=== PATIENT | female | born 1980 | race Caucasian/White ===

== ENCOUNTER → 2019-08-27 11:21 | Outpatient (BNVA) | payer OTHER, SELFPAY | PROVIDERS: Family Provider Electrodiagnostic Medicine; PCP Electrodiagnostic Medicine; Visit Provider Urology | DX: N30.20 Other chronic cystitis without hematuria (principal); B37.3 Candidiasis of vulva and vagina | CPT/HCPCS: 81001; 87086 ==

== ENCOUNTER → 2020-06-18 18:11 | Outpatient (BNVA) | payer OTHER, SELFPAY | PROVIDERS: Family Provider Electrodiagnostic Medicine; PCP Electrodiagnostic Medicine; Visit Provider Electrodiagnostic Medicine | DX: Z11.59 Encounter for screening for other viral diseases (principal) | CPT/HCPCS: 87635 ==

== ENCOUNTER 2020-08-12 13:41 | Outpatient (CLI) | payer OTHER, SELFPAY ==
--- NOTE | 2020-08-12 13:15 | XR_ITS ---
WS: [id number] Exam: XR KUB [id number] Date/Time of Exam: 08/12/2020 1:51 PM Reason For Exam: Stone No bowel obstruction or free air. No abnormal calcifications identified in the region of the renal si lhouettes. Visualized organ margins are intact. Moderate amount of stool in the large bowel. Rounded nonspecific right pelvic calcifications are noted probably phleboliths. XR/XR KUB [id number] IMPRESSION: 1. No acute abdominal process. 2. No abnormal calcifications identified in the region of the kidneys.
== END 2020-08-12 13:42 | disposition home or self-care (01) ==
LOC: RAD 13:48
PROVIDERS: PCP Electrodiagnostic Medicine; Visit Provider Urology
DX: N20.0 Calculus of kidney (principal)
CPT/HCPCS: 74018; 81003

== ENCOUNTER → 2020-09-05 08:32 | Outpatient (BNVA) | payer OTHER, SELFPAY | PROVIDERS: PCP Electrodiagnostic Medicine; Visit Provider Nurse Practitioner Family | DX: N30.20 Other chronic cystitis without hematuria (principal) | CPT/HCPCS: 81003 ==

== ENCOUNTER → 2020-09-18 08:15 | Outpatient (BNVA) | payer OTHER, SELFPAY | PROVIDERS: PCP Electrodiagnostic Medicine; Visit Provider Urology | DX: N30.20 Other chronic cystitis without hematuria (principal); N20.0 Calculus of kidney; R35.8 Other polyuria | CPT/HCPCS: 81003 ==

== ENCOUNTER → 2020-10-29 14:31 | Outpatient (BNVA) | payer OTHER, SELFPAY | PROVIDERS: PCP Electrodiagnostic Medicine; Visit Provider Obstetrics & Gynecology | DX: Z12.4 Encounter for screening for malignant neoplasm of cervix (principal) | CPT/HCPCS: 88175 ==

== ENCOUNTER → 2020-11-11 16:06 | Outpatient (BNVA) | payer OTHER, SELFPAY | PROVIDERS: PCP Electrodiagnostic Medicine; Visit Provider Obstetrics & Gynecology | DX: R87.611 Atypical squamous cells cannot exclude high grade squamous intraepithelial lesion on cytologic smear of cervix (ASC-H) (principal) | CPT/HCPCS: 88305 ==

== ENCOUNTER → 2020-11-28 10:14 | Outpatient (BNVA) | payer OTHER, SELFPAY | PROVIDERS: PCP Electrodiagnostic Medicine; Visit Provider Obstetrics & Gynecology | DX: D06.9 Carcinoma in situ of cervix, unspecified (principal); Z20.822 Contact with and (suspected) exposure to COVID-19 | CPT/HCPCS: 87635 ==

== ENCOUNTER 2020-12-04 07:08 | Day surgery (SDC) | payer OTHER, SELFPAY ==
[2020-12-03 15:22] VITALS: BMI 27.4
[2020-12-04] VITALS (9 sets, daily range): BP systolic 106–121; BP diastolic 53–90; PULSE 83–114; RESP 16–20; TEMP 36.4–36.8; O2SAT 94–99
--- NOTE | 2020-12-04 07:19 | ANES.PREANE2 ---
Pre-Anesthetic Assessment Pre-Anesthetic Assessment: Height/Weight: Height 1.57 m Weight 68.039 kg Preop Diagnosis: SLOANE-2/3 Proposed Procedure: Operation Date: 12/04/20 08:45 Proposed Procedures p Cold Knife Cone Biopsy 70238 R87.621(Not Applicable) - Juan Miguel Hutson MD Was Beta Helga taken within 24 hours: N/A Was Clonidine taken within 24 hours: N/A Social: Social History: No alcohol and No tobacco Exam: Pre-Anes Outpt Exam: alert, oriented x 3, clear to auscultation bilaterally and regular rate & rhythm Airway: Submandibular: WNL Cervical ROM: WNL MP: 2 History/ROS: No significant complaints Pulmonary: Pulmonary: None reported CV/HEM: CV/HEM: None reported : : UTI Comments: Kidney stones, chronic cystitis Hepatic: Hepatic: None reported GI: Comments: Gastritis without significant reflux Neuropsych: Neuropsych: AVITIA (Migraine ) Anesthetic Plan: ASA status: 2 Anesthesia: General PFSH Anesthesia PFSH: Medical History Gastritis Reports having a history of gastritis/stomach ulcer and she takes daily omeprazole to help with the symptoms. Migraine Reports having a history of migraines most when she was in her 20s. They are just occasional now and Excedrin Migraine takes care of it. Denies any auras now. No pertinent past medical history Denies diabetes, asthma, hypertension, seizures, DVT/PE PCP: Dr. Burgess Surgical History H/O oral surgery [place] teeth removal. H/O tubal ligation tubal ligation via infraumbilical incision on 08/2008 Hx of appendectomy Open appendectomy via right lower quadrant incision in April 2009. Family History Mother Diabetes Father Hypertension Grandmother Diabetes maternal Stroke maternal Brother Hypertension Denies family history of Colon cancer Ovarian cancer Heart disease Hyperlipidemia Breast cancer Uterine cancer Thyroid condition Social History Smoking and tobacco status: never smoked Alcohol intake: never Marital status: Current occupational status: employed History of recent travel: No Current gender identity: Female Female Reproductive History: Date of last menstrual period: 11/27/20 Data Anesthesia Cardiac Studies: No Data to Display
[2020-12-04] MEDS: sodium chloride 0.9% 1,000 ML 30 ML IV (07:42)
[2020-12-04 07:54] LABS: OR HCG Qualitative Urine Negative (Negative)
[2020-12-04 08:26] LABS: Basophils % 0.6 %; Eosinophils % 0.9 %; Hematocrit 41.5 % (37.0-47.0); Hemoglobin 13.7 g/dL (11.5-15.3); Lymphocytes # 1.1 10^3/uL (0.8-4.8); Mean Corpuscular Hemoglobin 27.3 pg (28.0-34.0); Mean Corpuscular Volume 82.8 fL (81-99); Mean Platelet Volume 10.6 fL (7.4-10.4); Monocytes # 0.2 10^3/uL (0.2-0.9); Monocytes % 4.3 %; Neutrophils # 3.31 10^3/uL (1.8-7.7); Nucleated Red Blood Cells % 0 %; Platelet Count 292 10^3/cmm (130-400); Red Blood Count 5.01 10^6/uL (4.1-5.3); White Blood Count 4.7 10^3/uL (4.0-10.0)
--- NOTE | 2020-12-04 09:27 | W.PM.OPSUD ---
Surgery/Procedure H&P Update DATE OF PROCEDURE: December 04, 2020 DATE H&P PERFORMED: 11/24/20 H&P UPDATE INFORMATION: I have reviewed H&P completed within last 30 days, I have examined patient prior to procedure, No changes to prior documentation and H&P is in [facility] [place] on date indicated PREOP DIAGNOSIS: SLOANE-2/3 PLANNED PROCEDURE: Operation Date: 12/04/20 08:45 Proposed Procedures p Cold Knife Cone Biopsy [id number] R87.621(Not Applicable) - Juan Miguel Hutson MD
--- NOTE | 2020-12-04 10:37 | P.OP_ITS ---
Operative Report Date of procedure: December 04, 2020 OPERATIVE REPORT Date of surgery: 12/04/2020 Date of dictation: 12/04/2020 Preoperative diagnosis: SLOANE-3 and SLOANE-2 Postoperative diagnosis/findings: Same, dense acetowhite lesions noted circumferentially around the cervix, grade 2 uterine prolapse, grade 1 cystocele, minimal rectocele, exam under anesthesia 8week, no adnexal masses size anteverted uterus Procedure done: Cold knife cone biopsy Specimens removed/disposition of specimens: Cervical cone, biopsy at 3:00 post cone excision, post LEEP ECC Surgeon: Dr. Juan Miguel Brown rehab care assistant: Belen Fuentes Anesthesia: Laryngeal mask anesthesia Estimated blood loss: 50 ml Intravenous fluids: 500 mL of LR Urine output: 50 mL of urine at the end of procedure Medications: As per anesthesia records Complications: None, patient was taken to the recovery room in a stable condition. PROCEDURE: After informed consent was obtained patient was taken to the operating room where she was placed under laryngeal mask anesthesia without any difficulty. She was placed in dorsal lithotomy position taking care to avoid any pressure points. Examined anesthesia revealed an 8-week size anteverted uterus with grade 2 uterine prolapse, grade 1 cystocele and minimal rectocele. Weighted speculum and anterior wall retractor was used to visualize the cervix and tenaculum was placed on the cervix as well. Acetic acid and Lugol's were placed over the cervix and acetowhite area was identified all around the squamocolumnar junction circumferentially. No additional changes noted with Lugol's iodine placement. -Using a scalpel cold knife cone was performed taking care to include all the abnormal tissue noted on the ectocervix and angling inwards in the shape of a cone. - Stay sutures were placed bilaterally to help with bleeding at 3:00 and 9:00. - It was tagged at 12:00. Once this was done it was noted that the left lateral aspect of the cervix had additional tissue and a biopsy was taken--labeled biopsy at 3:00. Once this was done endocervical curettage was performed both with a curet and Cytobrush and the specimens were sent to pathology. Using the rollerball cautery hemostasis was obtained over the cervix. Pursestring sutures were placed from about 3:00 to 9:00 for additional hemostasis. Good hemostasis was achieved. Monsel's was used as well. Good hemostasis noted. All instruments were removed and patient tolerated the procedure well FOLLOW UP: Follow-up in 2 weeks and 6 weeks with surgeon MEDICATION ON DISCHARGE: Colace 100 mg by mouth every 12 hours when necessary constipation, 30 tablets, no refills Ibuprofen 800 mg by mouth every 8 hours when necessary pain, 60 tablets, no refills. [place] 5/325 mg 1 tablet by mouth every 6 hours when necessary pain,15 tablets, no refills Continue other home medication DISPOSITION: Home in a stable condition This documentation was created by [employer] clubhouse attendant software (known for inherent clubhouse attendant error). Every effort was made to assure accuracy of clubhouse attendant. Any obvious errors or omissions should be clarified with the author of the document. Pre-op Diagnosis: SLOANE-2/3
--- NOTE | 2020-12-04 10:38 | PC.NURSE ---
2 bottles of ferric subsulate used on sterile field. exp 01/06 lot#[id number] 1 bottle of lugol's used on sterile field exp 02/04 lot#[id number]
--- NOTE | 2020-12-04 10:43 | SUR.PHASEI ---
1040- ORAL AIRWAY REMOVED, SIMPLE MASK IN PLACE AT 6LPM SAT 97%
--- NOTE | 2020-12-04 12:31 | ANE.PACU2 ---
Inpatient post-anesthesia follow up: Airway intact: Yes Vital signs: Temperature 97.5 F Pulse Rate 105 Respiratory Rate 18 Blood Pressure 108/69 Pulse Oximetry 97 Oxygen Delivery Me thod Room Air Oxygen Flow Rate 6 Fraction of Inspir ed Oxygen Hydration adequate: Yes Nausea and vomiting: No Pain level: 3 Mental status: Baseline
--- NOTE | 2020-12-04 13:06 | SUR.PHASEII ---
1245: patient has not had any bleeding since arrival to phase 2 at 1058
== END 2020-12-04 12:55 | disposition home or self-care (01) ==
PROVIDERS: PCP Electrodiagnostic Medicine; Visit Provider Obstetrics & Gynecology
PROC: 0UB97ZZ Excision of Uterus, Via Natural or Artificial Opening (ICD-10-PCS; CPT 57520; principal; 2020-12-04 08:45)
DX: D06.9 Carcinoma in situ of cervix, unspecified (principal)
CPT/HCPCS: 57520; 36415; 81025; 84703; 85025; 86850; 86900; 88307; J1100; J2250; J2405; J2704; J3010; J3490; J7030

== ENCOUNTER → 2020-12-23 08:45 | Outpatient (BNVA) | payer OTHER, SELFPAY | PROVIDERS: PCP Electrodiagnostic Medicine; Visit Provider Nurse Practitioner Family | DX: N30.20 Other chronic cystitis without hematuria (principal) | CPT/HCPCS: 81003 ==

== ENCOUNTER → 2021-11-11 11:30 | Outpatient (BNVA) | payer OTHER, SELFPAY | PROVIDERS: PCP Electrodiagnostic Medicine; Visit Provider Obstetrics & Gynecology | DX: D06.9 Carcinoma in situ of cervix, unspecified (principal); N93.9 Abnormal uterine and vaginal bleeding, unspecified | CPT/HCPCS: 84146; 84443; 85027; 87624 ==

== ENCOUNTER → 2021-12-11 08:18 | Outpatient (BNVA) | payer OTHER, SELFPAY | PROVIDERS: PCP Electrodiagnostic Medicine; Visit Provider Obstetrics & Gynecology | DX: N93.9 Abnormal uterine and vaginal bleeding, unspecified (principal); N83.202 Unspecified ovarian cyst, left side | CPT/HCPCS: 76830 ==

== ENCOUNTER 2022-06-08 10:55 | Day surgery (SDC) | payer OTHER, SELFPAY ==
[2022-06-07 10:18] VITALS: BMI 28.7
[2022-06-08] VITALS (18 sets, daily range): BP systolic 109–140; BP diastolic 67–101; PULSE 82–134; RESP 12–20; TEMP 36.1–36.9; O2SAT 95–100
[2022-06-08 11:47] LABS: OR HCG Qualitative Urine Negative (Negative)
[2022-06-08] MEDS: sodium chloride 0.9% 1,000 ML 30 ML IV (11:52)
[2022-06-08] MEDS: scopolamine 1.5 Patch 1 PATCH TRANSDERMA (11:52)
--- NOTE | 2022-06-08 11:58 | ANES.PREANE2 ---
Pre-Anesthetic Assessment Height/Weight: Height 1.57 m Weight 71.214 kg Temp Pulse Resp BP Pulse Ox O2 Del Method 98.5 F 84 16 139/101 99 06/08/22 11:20 06/08/22 11:20 06/08/22 11:20 06/08/22 11:20 06/08/22 11:20 06/08/22 11:25 Preop Diagnosis: AUB Operation Date: 06/08/22 12:20 Proposed Procedures p Hysteroscopy w/ Myosure(Not Applicable) - Lisa Camacho MD s Dilation And Curettage (D&C)(Not Applicable) - Lisa Camacho MD Familial anesthetic complications: none Was Beta Helga taken within 24 hours: N/A Was Clonidine taken within 24 hours: N/A Last intake: Intake Last Liquid Date 06/08/22 Last Liquid Time 04:00 Last Solid Date 06/07/22 Last Solid Time 21:00 Social No alcohol Exam alert, oriented x 3, clear to auscultation bilaterally and regular rate & rhythm Airway Submandibular: within normal limits Cervical ROM: within normal limits Mallampati: Class II Dentition: full GI Gastroesophageal Reflux Disease Neuropsych Headache Anesthetic Plan ASA status: 2 Anesthesia: General Medications/Allergies Home Medications Medication Instructions Recorded Confirmed Last Taken Type acetaminophen 500 mg capsule 500 mg PO Q6H PRN Pain 08/27/19 06/07/22 Unknown History diphenhydramine HCl 25 mg capsule 25 mg PO TID PRN Allergy Symptoms 08/27/19 06/07/22 06/06/22 History (Benadryl) vitamin B complex (B 1 tab PO DAILY 08/27/19 06/08/22 06/07/22 History Complex-Vitamin B12 tablet) valacyclovir 500 mg tablet 500 mg PO DAILY PRN Cold Sores 08/12/20 06/08/22 05/24/22 History (Valtrex) omeprazole 10 mg capsule,delayed 10 mg PO DAILY PRN Acid Reflux 11/24/20 06/08/22 06/01/22 History release ibuprofen 800 mg tablet 800 mg PO Q8H PRN pain 12/17/20 06/08/22 06/02/22 History cholecalciferol (vitamin D3) PO 01/21/21 06/03/22 06/06/22 History cetirizine 10 mg capsule (Zyrtec) 10 mg PO DAILY 11/11/21 06/07/22 06/07/22 History melatonin 3 mg capsule 3 mg PO DAILY PRN Sleep 11/11/21 06/08/22 06/06/22 History zinc acetate PO PRN supplement 12/23/21 06/03/22 Unknown History norethindrone (contraceptive) 0.35 0.35 mg PO DAILY #84 tabs 04/27/22 06/07/22 06/07/22 Rx mg tablet (Ortho Micronor) Mucinex PRN Congestion 06/08/22 06/06/22 History Allergies Allergy/AdvReac Type Severity Reaction Status Date / Time No Known Allergies Allergy Verified 06/03/22 07:59 Current Medications Generic Name Dose Route Start Last Admin Trade Name Freq PRN Reason Stop Dose Admin Sodium Chloride 1,000 mls @ 30 mls/hr 06/08/22 11:15 06/08/22 11:52 Sodium Chloride 0.9% IV 06/09/22 11:14 30 mls/hr .Q24H JUAN R Administration PFSH Anesthesia Medical History Gastritis Reports having a history of gastritis/stomach ulcer and she takes daily omeprazole to help with the symptoms. Migraine with optical [place]. Reports having a history of migraines most when she was in her 20s. States that they are worse during her menstrual cycle. Tylenol Sinus helps. Does not have a neurologist now but did see 1 5 years ago and was under treatment for 1 year with medication with no improvement of symptoms. No pertinent past medical history Denies diabetes, asthma, hypertension, seizures, DVT/PE PCP: Dr. Burgess Surgical History H/O oral surgery [place] teeth removal. H/O tubal ligation tubal ligation via infraumbilical incision on 08/2008 Hx of appendectomy Open appendectomy via right lower quadrant incision in April 2009. S/P conization of cervix 12/04/2020--cold knife cone biopsy by Dr. Brown at [facility] for SLOANE-3. Pathology showed focal SLOANE-2 with no endocervical glandular involvement. Ectocervical and endocervical margins are negative. Post LEEP ECC was benign Family History Mother Diabetes Father Hypertension Grandmother Diabetes maternal Stroke maternal Brother Hypertension Mother Breast cancer Family/Other Breast cancer maternal aunt, diagnosed at age 70 Denies family history of Colon cancer Ovarian cancer Heart disease Hyperlipidemia Uterine cancer Thyroid condition Female Reproductive History Date of last menstrual period: 05/13/22 Data Anesthesia Cardiac Studies: No Data to Display
[2022-06-08] MEDS: ceFAZolin 2,000 MG in sodium chloride 0.9% (plus) 50 ML 100 MG IV (12:55)
--- NOTE | 2022-06-08 12:57 | W.PM.OPSUD ---
Surgery/Procedure H&P Update DATE OF PROCEDURE: June 08, 2022 DATE H&P PERFORMED: 06/03/22 H&P UPDATE INFORMATION: I have reviewed H&P completed within last 30 days, I have examined patient prior to procedure and No changes to prior documentation PREOP DIAGNOSIS: AUB PLANNED PROCEDURE: Operation Date: 06/08/22 12:20 Proposed Procedures p Hysteroscopy w/ Myosure(Not Applicable) - Lisa Camacho MD s Dilation And Curettage (D&C)(Not Applicable) - Lisa Camacho MD Related Problem List Diagnoses (1) Abnormal uterine bleeding (AUB):
--- NOTE | 2022-06-08 13:34 | P.OP_ITS ---
Operative Report Date of procedure: June 08, 2022 Pre-op diagnosis: Preop Diagnosis AUB Post-op diagnosis: same Post-op findings: 10 week sized uterus, excessive tissue anteriorly and around 5:00. Procedure done: hysteroscopy, dilation and curettage with myosure Specimens removed/disposition: endometrial curettings to pathology Surgeon: Lisa Camacho Anesthesia: MAC Estimated blood loss (mL): 25 IV fluids (mL): 700 Complications: none Findings: hysteroscopy deficit of 1195 ml Procedure: The patient was taken to the operating room where monitored anesthesia was administered and to be adequate. She was prepped and draped in the normal sterile fashion in the dorsal lithotomy position in [facility]. A weighted speculum was placed into the vagina and the anterior lip of the cervix grasped with a single-tooth tenaculum. The uterus was sounded to 10 cm. The cervix was dilated to 16 [place]. The hysteroscope was advanced into the endometrial cavity. There was excessive tissue anteriorly and at 5:00 visualized. The MyoSure device was activated and the tissue was removed. Pictures were taken pre procedure. There was bleeding after removal of the anterior tissue and visualization was impaired. The procedure was abandoned. All instruments were removed. The patient tolerated the procedure well. Sponge lap and needle counts were correct x3. She was taken to the recovery room in stable condition.
--- NOTE | 2022-06-08 13:39 | PM.DCS ---
Discharge Providers Date of Admission: 06/08/22 Date of Discharge: June 08, 2022 Attending Provider at Discharge: Lisa Camacho MD Primary Care Provider: Chano Burgess DO Diagnoses at Discharge Discharge Diagnosis (1) Abnormal uterine bleeding (AUB): Status: Acute Hospital Course Hospital Course The patient was admitted for surgery. She did well postoperatively. She was ready for disharge. Discharge Data Studies Completed and Pending Pending at discharge Category Date Time Status ES surgery / GI images Routine Exams 06/08/22 11:52 Ordered Laboratory Results Urine HCG, Qual Negative (Negative) 06/08/22 11:45 Vitals Last Vital Signs Temp 98.5 F 06/08/22 11:20 Pulse 84 06/08/22 11:20 Resp 16 06/08/22 11:20 BP 139/101 06/08/22 11:20 Pulse Ox 99 06/08/22 11:20 O2 Del Method 06/08/22 11:25 Discharge Plan Discharge Condition: Stable Prescriptions: Continued diphenhydramine HCl [Benadryl] 25 mg capsule 25 mg PO TID PRN (Reason: Allergy Symptoms) vitamin B complex [B Complex-Vitamin B12] Tablet 1 tab PO DAILY acetaminophen 500 mg capsule 500 mg PO Q6H PRN (Reason: Pain) omeprazole 10 mg capsule,delayed release(DR/EC) 10 mg PO DAILY PRN (Reason: Acid Reflux) ibuprofen 800 mg tablet 800 mg PO Q8H PRN (Reason: pain) Zyrtec 10 mg capsule 10 mg PO DAILY valacyclovir [Valtrex] 500 mg tablet 500 mg PO DAILY PRN (Reason: Cold Sores) melatonin 3 mg capsule 3 mg PO DAILY PRN (Reason: Sleep) cholecalciferol (vitamin D3) PO zinc acetate PO PRN (Reason: supplement) norethindrone (contraceptive) [Ortho Micronor] 0.35 mg tablet 0.35 mg PO DAILY Qty: 84 0RF Mucinex PRN (Reason: Congestion) Discharge Orders: Discharge Order (Routine); Ordered 06/08/22 Ordered By: Lisa Camacho Discharge Attestations Time Spent in Discharge Care*: less than 30 min Quality Metrics Clinical Quality Measures [ No reported AMI, CVA or VTE this stay] Coding Level of Care Code Acute Chg FW DC note Diagnoses Abnormal uterine bleeding (AUB) N93.9
[2022-06-08] MEDS: meperidine 50 mg/mL INJ 12.5 MG IVP (14:13)
--- NOTE | 2022-06-08 14:18 | PC.NURSE ---
PATIENT SHIVERING. DEMEROL GIVEN
--- NOTE | 2022-06-08 14:36 | PC.NURSE ---
PATIENT SUCTIONED ORALLY UPON ARRIVAL TO PACU
--- NOTE | 2022-06-08 14:46 | ANE.PACU2 ---
Inpatient post-anesthesia follow up: Airway intact: Yes Vital signs: Temperature 97.6 F Pulse Rate 98 Respiratory Rate 14 Blood Pressure 129/88 Pulse Oximetry 99 Oxygen Delivery Me thod Room Air Oxygen Flow Rate 8 Fraction of Inspir ed Oxygen Hydration adequate: Yes Nausea and vomiting: No Pain level: 2 Mental status: Baseline
--- NOTE | 2022-06-08 15:20 | SUR.PHASEII ---
15:05 pt still with small amount of blood loss.on bedside commode. 1 pad used.pt with increase in abdomen pain. pt reviewed with doctor Heredia.
[2022-06-08] MEDS: ondansetron 2 mg/ML SDV 2 mL 4 MG IVP (15:45)
[2022-06-08] MEDS: fentaNYL 50 mcg/mL INJ 2mL IVP (15:46)
--- NOTE | 2022-06-08 16:27 | SUR.PHASEII ---
16:30 PT WITH RELIEF OF NAUSEA AND PAIN.TOLERATING PO FLUIDS.
== END 2022-06-08 17:00 | disposition home or self-care (01) ==
PROVIDERS: Anesthesiology; PCP Electrodiagnostic Medicine; Visit Provider Obstetrics & Gynecology
PROC: 0UDB8ZZ Extraction of Endometrium, Via Natural or Artificial Opening Endoscopic (ICD-10-PCS; CPT 58558; principal; 2022-06-08 12:10)
PROC: (CPT 58120; 2022-06-08 12:10)
DX: N93.9 Abnormal uterine and vaginal bleeding, unspecified (principal); K21.9 Gastro-esophageal reflux disease without esophagitis; Z87.891 Personal history of nicotine dependence
CPT/HCPCS: 58558; 81025; 84703; 88305; J0690; J1100; J1885; J2175; J2250; J2405; J3010; J7030

== ENCOUNTER → 2022-10-01 10:07 | Outpatient (BNVA) | payer OTHER, SELFPAY | PROVIDERS: PCP Family Medicine; Visit Provider Family Medicine | DX: M25.40 Effusion, unspecified joint (principal); R00.2 Palpitations | CPT/HCPCS: 80053; 83735; 84443; 84550; 85025; 85651; 86140 ==

== ENCOUNTER 2023-07-25 12:25 | Outpatient (CLI) | payer OTHER, SELFPAY ==
--- NOTE | 2023-07-25 12:32 | XRR_ITS ---
PROCEDURE INFORMATION: Exam: XR Left Foot Exam date and time: 07/25/2023 12:47 PM Age: 43 years old Clinical indication: Left; Patient HX: Patient has a bruised foot with pain since last night; Additional info: Brusing, swelling of bottom of foot w/o trauma TECHNIQUE: Imaging protocol: Radiologic exam of the left foot. Views: 3 or more views. COMPARISON: CR XR foot LT min 3V* [id number] 04/22/2022 6:22 PM FINDINGS: Bones/joints: No acute fracture or dislocation. Joint spaces are preserved. Soft tissues: Normal. XR/XR foot LT min 3V* [id number] IMPRESSION: No acute fracture or dislocation.
[2023-07-25 12:40] LABS: Basophils % 0.7 %; Eosinophils % 0.9 %; Lymphocytes # 1.1 10^3/uL (0.8-4.8); Lymphocytes % 23.4 %; Mean Corpuscular HGB Conc 32.1 g/dL (30-55); Mean Corpuscular Hemoglobin 26.9 pg (27-33); Mean Corpuscular Volume 83.8 fl (85-98); Mean Platelet Volume 9.3 fL (7.4-10.4); Monocytes # 0.2 10^3/uL (0.2-0.9); Monocytes % 4.7 %; Neutrophils # 3.15 10^3/uL (1.8-7.7); Neutrophils % 70.1 %; Nucleated Red Blood Cells % 0 %; Platelet Count 285 10^3/cmm (157-399); Red Blood Count 5.13 10^6/uL (3.85-5.65); Red Cell Distribution Width 13.2 % (12.1-15.1); White Blood Count 4.49 10^3/uL (3.29-11.43)
[2023-07-25 13:00] LABS: Alanine Aminotransferase 15 U/L (0-33); Albumin Level 4.4 g/dL (3.5-5.2); Alkaline Phosphatase 67 U/L (35-105); Anion Gap 11.6 (5-19); Aspartate Amino Transferase 21 U/L (0-32); Blood Urea Nitrogen 8 mg/dL (6-20); Calcium 9.6 mg/dL (8.5-10.5); Carbon Dioxide 30 mmol/L (22-29); Chloride 103 mmol/L (98-107); Globulin 3.1 g/dL (1.3-4.6); Glucose 81 mg/dL (65-115); Osmolality Calculated 289 mOsm/kg (285-295); Potassium 3.6 mmol/L (3.5-5.1); Sodium 141 mmol/L (136-145); Total Bilirubin 1.1 mg/dL (0.15-1.2); Total Protein 7.5 g/dL (6.6-8.7); Uric Acid 4.5 mg/dL (2.4-5.7)
[2023-07-25 13:13] LABS: Erythrocyte Sedimentation Rate 3 mm/hr (0-15)
== END 2023-07-25 12:26 | disposition home or self-care (01) ==
LOC: LAB 12:26
PROVIDERS: PCP Family Medicine; Visit Provider Family Medicine
DX: M79.672 Pain in left foot (principal); M79.89 Other specified soft tissue disorders; S90.30XA Contusion of unspecified foot, initial encounter; R35.0 Frequency of micturition; X58.XXXA Exposure to other specified factors, initial encounter
CPT/HCPCS: 36415; 73630; 80053; 81000; 84550; 85025; 85651

== ENCOUNTER → 2023-09-05 11:49 | Outpatient (BNVA) | payer OTHER, SELFPAY | PROVIDERS: PCP Family Medicine; Visit Provider Obstetrics & Gynecology | DX: Z01.419 Encounter for gynecological examination (general) (routine) without abnormal findings (principal) | CPT/HCPCS: 87624 ==

== ENCOUNTER → 2023-09-07 12:23 | Outpatient (BNVA) | payer OTHER, SELFPAY | PROVIDERS: PCP Family Medicine; Visit Provider Obstetrics & Gynecology | DX: N92.6 Irregular menstruation, unspecified (principal); N83.292 Other ovarian cyst, left side; N83.291 Other ovarian cyst, right side | CPT/HCPCS: 76830 ==

== ENCOUNTER → 2024-04-30 09:53 | Outpatient (BNVA) | payer OTHER, SELFPAY | PROVIDERS: PCP Family Medicine; Visit Provider Family Medicine | DX: R50.9 Fever, unspecified (principal) | CPT/HCPCS: 87400; 87426 ==